=== PATIENT | female | born 1960 | race Two or more races ===

== ENCOUNTER 2019-07-21 22:35 | Emergency (ER) | payer SELFPAY ==
[~2019-07-21] VITALS: Ht 160 cm; Wt 72.6 kg
[2019-07-22 02:00] VITALS: BP 152/91
[2019-07-22] MEDS ORDERED: TETANUS-DIPTH-ACEL PERTUSSIS 0.5ML SYRG IM ONE (03:00)
== END 2019-07-22 03:26 | disposition home or self-care (01) ==
LOC: EDBD 22:35 → ER 22:44
DX: S50.12XA Contusion of left forearm, initial encounter (principal); S16.1XXA Strain of muscle, fascia and tendon at neck level, initial encounter; R51 Headache; R07.89 Other chest pain; Z88.0 Allergy status to penicillin; V43.52XA Car driver injured in collision with other type car in traffic accident, initial encounter; Y93.89 Activity, other specified; Y99.8 Other external cause status; Y92.410 Unspecified street and highway as the place of occurrence of the external cause
CPT/HCPCS: 70450; 71045; 72125; 72131; 73090; 90471

== ENCOUNTER 2021-07-28 19:00 | Inpatient (IN) | payer BC, OTHER ==
[~2021-07-28] VITALS: Ht 162.6 cm; Wt 90.3 kg
[2021-07-28] MEDS ORDERED: methylPREDNISolone SOD SUCC 125 MG/2 ML VL IV ONE (19:15)
[2021-07-28 19:44] LABS: Basophils # (auto) 0 10 ^3/uL (0-0.2); Basophils % (auto) 0.2 % (0.0-2.0); Eosinophils # (auto) 0 10 ^3/uL (0-0.8); Hematocrit 38.5 % (36.0-46.0); Hemoglobin 13.1 g/dL (12.2-16.2); Lymphocytes # (auto) 0.6 10 ^3/uL (0.4-5.4); Mean Corpuscular Hemoglobin 29.9 pg (28.0-32.0); Mean Corpuscular Volume 88.1 fL (80.0-100.0); Monocytes # (auto) 0.3 10 ^3/uL (0-1.3); Monocytes % (auto) 4.2 % (0.0-12.0); Neutrophils # (auto) 5.4 10 ^3/uL (1.6-8.6); Neutrophils % (auto) 85.6 % (37.0-80.0); Red Blood Cells 4.37 10^6/uL (4.0-5.20); Red Cell Distribution Width 12.3 % (11.8-14.3); White Blood Cell 6.4 10^3/uL (4.4-10.8)
[2021-07-28 19:56] LABS: Albumin 2.5 g/dL (3.4-5.0); Anion Gap 11 (5-15); Blood Urea Nitrogen 15 mg/dL (7-18); Calcium 8.3 mg/dL (8.5-10.1); Carbon Dioxide 22 mmol/L (21-32); Chloride 94 mmol/L (98-107); Glucose 113 mg/dL (74-106); Potassium 3.4 mmol/L (3.5-5.1); Sodium 127 mmol/L (136-145)
[2021-07-28 20:08] LABS: Alanine Aminotransferase 138 U/L (13-56); Alkaline Phosphatase 68 U/L (45-117); Aspartate Aminotransferase 182 U/L (15-37); BUN/Creatinine Ratio 12.3; Bilirubin, Total 0.4 mg/dL (0.2-1.0); GFR African American 58 mL/min; GFR Non-African American 48 mL/min; Total Protein 6.9 g/dL (6.4-8.2)
[2021-07-28 20:11] LABS: CRP High Sensitivity > 19.0 mg/dL (< 0.3)
[2021-07-28] MEDS ORDERED: ASCORBIC ACID 500 MG TAB PO ONE (21:15)
[2021-07-28] MEDS ORDERED: AZITHROMYCIN 500MG/ 250ML 250 ML IV ONE (21:15)
[2021-07-28] MEDS ORDERED: ZINC SULFATE 220mg CAP or TAB PO ONE (21:15)
[2021-07-28] MEDS ORDERED: CHOLECALCIFEROL (VITD3) 2,000 UNIT CAP/TAB PO ONE (21:15)
[2021-07-28] MEDS ORDERED: HYDROcodone-ACET 5/325MG TAB PO PRN (23:30)
[2021-07-28] MEDS ORDERED: ACETAMINOPHEN 500 MG TAB PO PRN (23:30)
[2021-07-28] MEDS ORDERED: ONDANSETRON HCL 4 MG/2 ML VIAL IV PRN (23:30)
[2021-07-28] MEDS ORDERED: MORPHINE SULFATE INJECTION 2 MG/ML SYRG IV PRN (23:30)
[2021-07-28] MEDS ORDERED: NITROGLYCERIN 0.4 MG SL TAB SL PRN (23:30)
[2021-07-28] MEDS ORDERED: SODIUM CHLORIDE 0.9% 1,000 ML IV SCH (23:30)
[2021-07-28 23:44] VITALS: BP 107/68
[2021-07-28] MEDS ORDERED: POTASSIUM CHL 20 Meq TABLET PO ONE (23:45)
[2021-07-29] MEDS ORDERED: ALBUMIN 5% 250 ML IV ONE (00:15)
[2021-07-29 00:47] LABS: Urine Bacteria MANY /hpf (None Seen); Urine Blood 1+ /uL (Negative); Urine Hyaline Cast FEW /lpf (0 - 2); Urine Specific Gravity 1.008 (1.001-1.035); Urine WBC 11 /hpf (0 - 5)
[2021-07-29 02:44] VITALS: BP 101/70
[2021-07-29 05:00] VITALS: BP 95/63
[2021-07-29] MEDS ORDERED: HEPARIN SODIUM (PORCINE) 5000 UNITS/ML 1ML VIAL SC SCH (06:00)
[2021-07-29 06:28] LABS: Basophils # (auto) 0 10 ^3/uL (0-0.2); Basophils % (auto) 0.2 % (0.0-2.0); Eosinophils # (auto) 0 10 ^3/uL (0-0.8); Hematocrit 40.3 % (36.0-46.0); Hemoglobin 13.7 g/dL (12.2-16.2); Lymphocytes # (auto) 0.4 10 ^3/uL (0.4-5.4); Mean Corpuscular Hemoglobin 30.1 pg (28.0-32.0); Mean Corpuscular Volume 88.3 fL (80.0-100.0); Monocytes # (auto) 0.1 10 ^3/uL (0-1.3); Monocytes % (auto) 2.1 % (0.0-12.0); Neutrophils # (auto) 4.3 10 ^3/uL (1.6-8.6); Neutrophils % (auto) 88.7 % (37.0-80.0); Nucleated Red Blood Cells % 0.1 %; Red Blood Cells 4.56 10^6/uL (4.0-5.20); Red Cell Distribution Width 12.6 % (11.8-14.3); White Blood Cell 4.9 10^3/uL (4.4-10.8)
[2021-07-29 06:52] LABS: Albumin 2.6 g/dL (3.4-5.0); Calcium 8.4 mg/dL (8.5-10.1); Potassium 3.7 mmol/L (3.5-5.1)
[2021-07-29 06:55] LABS: Bilirubin, Total 0.4 mg/dL (0.2-1.0); Total Protein 7.3 g/dL (6.4-8.2)
[2021-07-29] MEDS: BUDESONIDE (INHALATION) 180 MCG IH IN SCH ×2 (07:05→21:36)
[2021-07-29 09:00] VITALS: BP 109/75
[2021-07-29] MEDS: DexAMETHasone SOD PHOS 10MG/1ML VIAL INJ IV SCH (09:55)
[2021-07-29] MEDS: AZITHROMYCIN 500MG/ 250ML 250 ML IV SCH (09:55)
[2021-07-29] MEDS: MULTIPLE VITAMIN TAB PO SCH (09:56)
[2021-07-29] MEDS: ZINC SULFATE 220mg CAP or TAB PO SCH (09:56)
[2021-07-29] MEDS: ASCORBIC ACID 1,000 MG TAB PO SCH (09:56)
[2021-07-29] MEDS: CHOLECALCIFEROL (VITD3) 2,000 UNIT CAP/TAB PO SCH (09:56)
[2021-07-29 13:00] VITALS: BP 97/68
[2021-07-29] MEDS ORDERED: REMDESIVIR PER PHARMACY 0 ML IV SCH (13:00)
[2021-07-29] MEDS ORDERED: REMDESIVIR 200 MG in NS 210ml LOADING DOSE ADULT IV ONE (15:00)
[2021-07-29] MEDS ORDERED: IOHEXOL 350 MG/ML 100ML IJ ONE (16:32)
[2021-07-29 17:00] VITALS: BP 118/66
[2021-07-29] MEDS: SODIUM CHLORIDE 0.9% 1,000 ML IV SCH ×2 (17:30→23:26)
[2021-07-29] MEDS: ENOXAPARIN SOD 40 MG/0.4 ML SYRINGE SC SCH (21:41)
[2021-07-29 22:00] VITALS: BP 100/61
[2021-07-29] MEDS: ALBUTEROL SULF HFA 90MCG INH 200DOSE IN PRN (23:08)
[2021-07-30 05:00] VITALS: BP 114/74
[2021-07-30] MEDS: ALBUTEROL SULF HFA 90MCG INH 200DOSE IN PRN (06:53)
[2021-07-30] MEDS: BUDESONIDE (INHALATION) 180 MCG IH IN SCH ×2 (06:53→20:50)
[2021-07-30 09:00] VITALS: BP 107/64
[2021-07-30] MEDS: DexAMETHasone SOD PHOS 10MG/1ML VIAL INJ IV SCH (09:22)
[2021-07-30] MEDS: AZITHROMYCIN 500MG/ 250ML 250 ML IV SCH (09:22)
[2021-07-30] MEDS: ZINC SULFATE 220mg CAP or TAB PO SCH (09:23)
[2021-07-30] MEDS: ENOXAPARIN SOD 40 MG/0.4 ML SYRINGE SC SCH ×2 (09:24→21:38)
[2021-07-30] MEDS: CHOLECALCIFEROL (VITD3) 2,000 UNIT CAP/TAB PO SCH (09:24)
[2021-07-30] MEDS: ASCORBIC ACID 1,000 MG TAB PO SCH (09:24)
[2021-07-30] MEDS: MULTIPLE VITAMIN TAB PO SCH (09:24)
[2021-07-30 11:23] LABS: Albumin 2.3 g/dL (3.4-5.0)
[2021-07-30 11:29] LABS: Bilirubin, Direct 0.1 mg/dL (0-0.2); Bilirubin, Total 0.3 mg/dL (0.2-1.0); Total Protein 6.7 g/dL (6.4-8.2)
[2021-07-30 13:00] VITALS: BP 125/65
[2021-07-30] MEDS: guaiFENesin-DM 100/10mg/5ml SYR PO PRN ×2 (15:10→21:45)
[2021-07-30] MEDS: REMDESIVIR 100mg 100 MG in SODIUM CHL 0.9% 230 ML IV SCH (15:10)
[2021-07-30 17:00] VITALS: BP 124/73
[2021-07-30 21:51] VITALS: BP 130/71
[2021-07-30] MEDS ORDERED: VANCOMYCIN PER PHARMACY 0 MG IV SCH (23:00)
[2021-07-30] MEDS ORDERED: VANCOMYCIN 1GM/250ML 250 ML IV ONE (23:15)
[2021-07-31 04:37] VITALS: BP 133/76
[2021-07-31] MEDS: BUDESONIDE (INHALATION) 180 MCG IH IN SCH ×2 (06:47→19:47)
[2021-07-31] MEDS: ALBUTEROL SULF HFA 90MCG INH 200DOSE IN PRN (06:47)
[2021-07-31 06:59] LABS: Potassium 3.4 mmol/L (3.5-5.1)
[2021-07-31 07:12] LABS: Albumin 2.4 g/dL (3.4-5.0); BUN/Creatinine Ratio 17.1; Bilirubin, Total 0.5 mg/dL (0.2-1.0); Calcium 8.4 mg/dL (8.5-10.1); Total Protein 6.9 g/dL (6.4-8.2)
[2021-07-31 09:00] VITALS: BP 145/78
[2021-07-31] MEDS: DexAMETHasone SOD PHOS 10MG/1ML VIAL INJ IV SCH (10:10)
[2021-07-31] MEDS: ZINC SULFATE 220mg CAP or TAB PO SCH (10:11)
[2021-07-31] MEDS: AZITHROMYCIN 500MG/ 250ML 250 ML IV SCH (10:11)
[2021-07-31] MEDS: MULTIPLE VITAMIN TAB PO SCH (10:12)
[2021-07-31] MEDS: ASCORBIC ACID 1,000 MG TAB PO SCH (10:12)
[2021-07-31] MEDS: CHOLECALCIFEROL (VITD3) 2,000 UNIT CAP/TAB PO SCH (10:13)
[2021-07-31] MEDS: ENOXAPARIN SOD 40 MG/0.4 ML SYRINGE SC SCH ×2 (10:14→22:15)
[2021-07-31] MEDS ORDERED: POTASSIUM CHL 20 Meq TABLET PO ONE (12:00)
[2021-07-31] MEDS ORDERED: VANCOMYCIN PER PHARMACY 0 MG IV SCH (12:45)
[2021-07-31 13:00] VITALS: BP 124/73
[2021-07-31] MEDS ORDERED: VANCOMYCIN 1GM/250ML 250 ML IV SCH (14:30)
[2021-07-31] MEDS: REMDESIVIR 100mg 100 MG in SODIUM CHL 0.9% 230 ML IV SCH (16:23)
[2021-07-31 17:00] VITALS: BP 115/66
[2021-07-31 19:34] VITALS: BP 115/66
[2021-07-31 22:00] VITALS: BP 126/76
[2021-07-31] MEDS: LINEZOLID 600MG/300ML 300 ML IV SCH (22:15)
[2021-08-01 05:00] VITALS: BP 130/77
[2021-08-01 06:10] LABS: Basophils # (auto) 0 10 ^3/uL (0-0.2); Basophils % (auto) 0.2 % (0.0-2.0); Eosinophils # (auto) 0 10 ^3/uL (0-0.8); Hematocrit 37.8 % (36.0-46.0); Hemoglobin 12.8 g/dL (12.2-16.2); Lymphocytes # (auto) 0.8 10 ^3/uL (0.4-5.4); Lymphocytes % (auto) 5.9 % (10.0-50.0); Mean Corpuscular Hgb Conc. 33.8 g/dL (32.0-36.0); Mean Corpuscular Volume 88.8 fL (80.0-100.0); Monocytes # (auto) 0.2 10 ^3/uL (0-1.3); Monocytes % (auto) 1.7 % (0.0-12.0); Neutrophils # (auto) 12.1 10 ^3/uL (1.6-8.6); Neutrophils % (auto) 92.2 % (37.0-80.0); Red Blood Cells 4.25 10^6/uL (4.0-5.20); Red Cell Distribution Width 12.9 % (11.8-14.3); White Blood Cell 13.2 10^3/uL (4.4-10.8)
[2021-08-01 06:30] LABS: Potassium 3.7 mmol/L (3.5-5.1)
[2021-08-01 06:41] LABS: BUN/Creatinine Ratio 18.5; Bilirubin, Total 0.7 mg/dL (0.2-1.0); CRP High Sensitivity 12.6 mg/dL (< 0.3); Calcium 8.3 mg/dL (8.5-10.1)
[2021-08-01] MEDS: BUDESONIDE (INHALATION) 180 MCG IH IN SCH (07:48)
[2021-08-01 09:00] VITALS: BP 118/74
[2021-08-01] MEDS: DexAMETHasone SOD PHOS 10MG/1ML VIAL INJ IV SCH (10:12)
[2021-08-01] MEDS: ASCORBIC ACID 1,000 MG TAB PO SCH (10:13)
[2021-08-01] MEDS: ENOXAPARIN SOD 40 MG/0.4 ML SYRINGE SC SCH ×2 (10:13→21:05)
[2021-08-01] MEDS: MULTIPLE VITAMIN TAB PO SCH (10:13)
[2021-08-01] MEDS: levoFLOXacin 500MG 100 ML IV SCH (10:13)
[2021-08-01] MEDS: CHOLECALCIFEROL (VITD3) 2,000 UNIT CAP/TAB PO SCH (10:13)
[2021-08-01] MEDS: ZINC SULFATE 220mg CAP or TAB PO SCH (10:13)
[2021-08-01] MEDS: LINEZOLID 600MG/300ML 300 ML IV SCH ×2 (12:07→21:05)
[2021-08-01 13:21] VITALS: BP 138/82
[2021-08-01] MEDS: REMDESIVIR 100mg 100 MG in SODIUM CHL 0.9% 230 ML IV SCH (15:56)
[2021-08-01 17:02] VITALS: BP 121/75
[2021-08-01 22:01] VITALS: BP 121/75
[2021-08-01] MEDS: guaiFENesin-DM 100/10mg/5ml SYR PO PRN (23:37)
[2021-08-02 05:05] VITALS: BP 137/82
[2021-08-02 06:59] LABS: Calcium 8.3 mg/dL (8.5-10.1); Potassium 4.1 mmol/L (3.5-5.1)
[2021-08-02 07:05] LABS: Albumin 1.8 g/dL (3.4-5.0); BUN/Creatinine Ratio 18.1; Bilirubin, Total 0.5 mg/dL (0.2-1.0)
[2021-08-02 09:00] VITALS: BP 111/59
[2021-08-02] MEDS: ENOXAPARIN SOD 40 MG/0.4 ML SYRINGE SC SCH ×2 (09:23→21:14)
[2021-08-02] MEDS: MULTIPLE VITAMIN TAB PO SCH (09:23)
[2021-08-02] MEDS: DexAMETHasone SOD PHOS 10MG/1ML VIAL INJ IV SCH (09:23)
[2021-08-02] MEDS: CHOLECALCIFEROL (VITD3) 2,000 UNIT CAP/TAB PO SCH (09:24)
[2021-08-02] MEDS: ZINC SULFATE 220mg CAP or TAB PO SCH (09:24)
[2021-08-02] MEDS: ASCORBIC ACID 1,000 MG TAB PO SCH (09:24)
[2021-08-02] MEDS: levoFLOXacin 500MG 100 ML IV SCH (09:30)
[2021-08-02] MEDS: LINEZOLID 600MG/300ML 300 ML IV SCH ×2 (11:03→21:14)
[2021-08-02 13:00] VITALS: BP 107/77
[2021-08-02] MEDS: REMDESIVIR 100mg 100 MG in SODIUM CHL 0.9% 230 ML IV SCH (15:58)
[2021-08-02 17:00] VITALS: BP 124/73
[2021-08-02 22:00] VITALS: BP 117/74
[2021-08-03 05:00] VITALS: BP 125/77
[2021-08-03 08:21] LABS: Calcium 8.3 mg/dL (8.5-10.1); Potassium 4.1 mmol/L (3.5-5.1)
[2021-08-03 08:23] LABS: BUN/Creatinine Ratio 22.1
[2021-08-03 08:46] VITALS: BP 125/69
[2021-08-03] MEDS: DexAMETHasone SOD PHOS 10MG/1ML VIAL INJ IV SCH (09:31)
[2021-08-03] MEDS: levoFLOXacin 500MG 100 ML IV SCH (09:31)
[2021-08-03] MEDS: ENOXAPARIN SOD 40 MG/0.4 ML SYRINGE SC SCH ×2 (09:31→21:19)
[2021-08-03] MEDS: ASCORBIC ACID 1,000 MG TAB PO SCH (09:31)
[2021-08-03] MEDS: ZINC SULFATE 220mg CAP or TAB PO SCH (09:33)
[2021-08-03] MEDS: CHOLECALCIFEROL (VITD3) 2,000 UNIT CAP/TAB PO SCH (09:33)
[2021-08-03] MEDS: MULTIPLE VITAMIN TAB PO SCH (09:33)
[2021-08-03] MEDS: LINEZOLID 600MG/300ML 300 ML IV SCH ×2 (10:34→21:18)
[2021-08-03 12:53] VITALS: BP 102/71
[2021-08-03 17:00] VITALS: BP 105/74
[2021-08-03] MEDS: guaiFENesin-DM 100/10mg/5ml SYR PO PRN (21:19)
[2021-08-03 22:00] VITALS: BP 113/77
[2021-08-04 05:00] VITALS: BP 99/56
[2021-08-04 09:00] VITALS: BP 99/7
[2021-08-04] MEDS: levoFLOXacin 500MG 100 ML IV SCH (09:29)
[2021-08-04] MEDS: ENOXAPARIN SOD 40 MG/0.4 ML SYRINGE SC SCH ×2 (09:30→21:11)
[2021-08-04] MEDS: ZINC SULFATE 220mg CAP or TAB PO SCH (09:30)
[2021-08-04] MEDS: DexAMETHasone SOD PHOS 10MG/1ML VIAL INJ IV SCH (09:31)
[2021-08-04] MEDS: MULTIPLE VITAMIN TAB PO SCH (09:31)
[2021-08-04] MEDS: CHOLECALCIFEROL (VITD3) 2,000 UNIT CAP/TAB PO SCH (09:31)
[2021-08-04] MEDS: ASCORBIC ACID 1,000 MG TAB PO SCH (09:31)
[2021-08-04] MEDS: LINEZOLID 600MG/300ML 300 ML IV SCH ×2 (11:02→21:09)
[2021-08-04 12:00] VITALS: BP 131/71
[2021-08-04 17:00] VITALS: BP 120/77
[2021-08-04] MEDS: guaiFENesin-DM 100/10mg/5ml SYR PO PRN (21:12)
[2021-08-04 22:00] VITALS: BP 119/80
[2021-08-05 05:00] VITALS: BP 121/82
[2021-08-05 09:00] VITALS: BP 106/72
[2021-08-05] MEDS: ASCORBIC ACID 1,000 MG TAB PO SCH (09:23)
[2021-08-05] MEDS: DexAMETHasone SOD PHOS 10MG/1ML VIAL INJ IV SCH (09:23)
[2021-08-05] MEDS: ENOXAPARIN SOD 40 MG/0.4 ML SYRINGE SC SCH ×2 (09:23→21:46)
[2021-08-05] MEDS: levoFLOXacin 500MG 100 ML IV SCH (09:23)
[2021-08-05] MEDS: CHOLECALCIFEROL (VITD3) 2,000 UNIT CAP/TAB PO SCH (09:23)
[2021-08-05] MEDS: ZINC SULFATE 220mg CAP or TAB PO SCH (09:23)
[2021-08-05] MEDS: MULTIPLE VITAMIN TAB PO SCH (09:24)
[2021-08-05] MEDS: LINEZOLID 600MG/300ML 300 ML IV SCH ×2 (10:34→21:46)
[2021-08-05 13:00] VITALS: BP 111/74
[2021-08-05 17:00] VITALS: BP 109/70
[2021-08-05] MEDS ORDERED: FUROSEMIDE 40 MG/4 ML VIAL IV ONE (17:30)
[2021-08-05] MEDS: guaiFENesin-DM 100/10mg/5ml SYR PO PRN (21:46)
[2021-08-05 22:00] VITALS: BP 98/63
[2021-08-06 05:57] LABS: Basophils # (auto) 0 10 ^3/uL (0-0.2); Eosinophils # (auto) 0 10 ^3/uL (0-0.8); Monocytes # (auto) 0.6 10 ^3/uL (0-1.3); Neutrophils # (auto) 5.7 10 ^3/uL (1.6-8.6); Nucleated Red Blood Cells % 0.1 %; White Blood Cell 7.9 10^3/uL (4.4-10.8)
[2021-08-06 06:00] LABS: Basophils % (auto) 0.2 % (0.0-2.0); Eosinophils % (auto) 0.4 % (0.0-7.0); Hemoglobin 12.7 g/dL (12.2-16.2); Lymphocytes # (auto) 1.5 10 ^3/uL (0.4-5.4); Lymphocytes % (auto) 19.5 % (10.0-50.0); Monocytes % (auto) 7.3 % (0.0-12.0); Neutrophils % (auto) 72.6 % (37.0-80.0); Red Blood Cells 4.12 10^6/uL (4.0-5.20)
[2021-08-06 06:01] LABS: Hematocrit 36.8 % (36.0-46.0); Mean Corpuscular Hemoglobin 30.9 pg (28.0-32.0); Mean Corpuscular Hgb Conc. 34.6 g/dL (32.0-36.0); Mean Corpuscular Volume 89.3 fL (80.0-100.0); Red Cell Distribution Width 12.8 % (11.8-14.3)
[2021-08-06 06:15] LABS: Calcium 8.4 mg/dL (8.5-10.1); Potassium 4.3 mmol/L (3.5-5.1)
[2021-08-06 06:18] LABS: BUN/Creatinine Ratio 23.9
[2021-08-06 06:20] LABS: Bilirubin, Total 0.5 mg/dL (0.2-1.0); Total Protein 6.1 g/dL (6.4-8.2)
[2021-08-06 09:00] VITALS: BP 101/64
[2021-08-06] MEDS: MULTIPLE VITAMIN TAB PO SCH (10:09)
[2021-08-06] MEDS: ZINC SULFATE 220mg CAP or TAB PO SCH (10:09)
[2021-08-06] MEDS: ASCORBIC ACID 1,000 MG TAB PO SCH (10:09)
[2021-08-06] MEDS: DexAMETHasone SOD PHOS 10MG/1ML VIAL INJ IV SCH (10:09)
[2021-08-06] MEDS: LINEZOLID 600MG/300ML 300 ML IV SCH ×2 (10:09→21:35)
[2021-08-06] MEDS: CHOLECALCIFEROL (VITD3) 2,000 UNIT CAP/TAB PO SCH (10:09)
[2021-08-06] MEDS: levoFLOXacin 500MG 100 ML IV SCH (10:09)
[2021-08-06] MEDS: ENOXAPARIN SOD 40 MG/0.4 ML SYRINGE SC SCH ×2 (10:10→21:35)
[2021-08-06 13:00] VITALS: BP 103/62
[2021-08-06 16:54] VITALS: BP 96/60
[2021-08-06 21:50] VITALS: BP 113/68
[2021-08-07 05:17] VITALS: BP 120/77
[2021-08-07 06:57] LABS: Basophils # (auto) 0 10 ^3/uL (0-0.2); Basophils % (auto) 0.2 % (0.0-2.0); Eosinophils # (auto) 0 10 ^3/uL (0-0.8); Hemoglobin 12.3 g/dL (12.2-16.2); Monocytes # (auto) 0.8 10 ^3/uL (0-1.3); Nucleated Red Blood Cells % 0.1 %
[2021-08-07 07:01] LABS: Eosinophils % (auto) 0.1 % (0.0-7.0); Hematocrit 35.7 % (36.0-46.0); Lymphocytes # (auto) 2.2 10 ^3/uL (0.4-5.4); Lymphocytes % (auto) 24.4 % (10.0-50.0); Mean Corpuscular Hemoglobin 31.4 pg (28.0-32.0); Mean Corpuscular Hgb Conc. 34.4 g/dL (32.0-36.0); Mean Corpuscular Volume 91.2 fL (80.0-100.0); Monocytes % (auto) 8.5 % (0.0-12.0); Neutrophils # (auto) 6.1 10 ^3/uL (1.6-8.6); Neutrophils % (auto) 66.8 % (37.0-80.0); Red Blood Cells 3.91 10^6/uL (4.0-5.20); Red Cell Distribution Width 12.8 % (11.8-14.3); White Blood Cell 9.1 10^3/uL (4.4-10.8)
[2021-08-07 07:05] LABS: Potassium 4.1 mmol/L (3.5-5.1)
[2021-08-07 07:11] LABS: BUN/Creatinine Ratio 21.1; Calcium 8.7 mg/dL (8.5-10.1); Magnesium 2.3 mg/dL (1.6-2.6)
[2021-08-07 07:19] LABS: Bilirubin, Total 0.5 mg/dL (0.2-1.0); Total Protein 5.8 g/dL (6.4-8.2)
[2021-08-07] MEDS: DexAMETHasone SOD PHOS 10MG/1ML VIAL INJ IV SCH (08:08)
[2021-08-07] MEDS: levoFLOXacin 500MG 100 ML IV SCH (08:08)
[2021-08-07] MEDS: MULTIPLE VITAMIN TAB PO SCH (08:09)
[2021-08-07] MEDS: LINEZOLID 600MG/300ML 300 ML IV SCH (08:09)
[2021-08-07] MEDS: ZINC SULFATE 220mg CAP or TAB PO SCH (08:09)
[2021-08-07] MEDS: ASCORBIC ACID 1,000 MG TAB PO SCH (08:09)
[2021-08-07] MEDS: ENOXAPARIN SOD 40 MG/0.4 ML SYRINGE SC SCH (08:10)
[2021-08-07] MEDS: CHOLECALCIFEROL (VITD3) 2,000 UNIT CAP/TAB PO SCH (08:10)
[2021-08-07 10:01] VITALS: BP 117/72
[2021-08-07 13:25] VITALS: BP 113/77
[2021-08-07 13:26] VITALS: BP 113/77
[2021-08-07 17:00] VITALS: BP 104/65
[2021-08-07 18:08] VITALS: BP 105/65
== END 2021-08-07 20:56 | disposition home or self-care (01) | DRG 177 ==
LOC: ER 19:00 → EDBD 19:00 → TELE 23:19 → TELE-EAST 23:47
PROVIDERS: ADMIT Nurse Practitioner Family; ATTEND Internal Medicine
PROC: XW033E5 Introduction of Remdesivir Anti-infective into Peripheral Vein, Percutaneous Approach, New Technology Group 5 (ICD-10-PCS; principal; 2021-07-29)
DX: U07.1 COVID-19 (principal); J96.01 Acute respiratory failure with hypoxia; J12.82 Pneumonia due to coronavirus disease 2019; N17.0 Acute kidney failure with tubular necrosis; E87.1 Hypo-osmolality and hyponatremia; R78.81 Bacteremia; E87.6 Hypokalemia; E66.9 Obesity, unspecified; Z68.32 Body mass index [BMI] 32.0-32.9, adult; B96.89 Other specified bacterial agents as the cause of diseases classified elsewhere; D89.839 Cytokine release syndrome, grade unspecified; R79.89 Other specified abnormal findings of blood chemistry; R60.0 Localized edema; E88.09 Other disorders of plasma-protein metabolism, not elsewhere classified; K76.0 Fatty (change of) liver, not elsewhere classified; Z88.0 Allergy status to penicillin
CPT/HCPCS: 36415; 36600; 71045; 71275; 76705; 80048; 80053; 80076; 80202; 81001; 82728; 82805; 83036; 83605; 83615; 83735; 85025; 85379; 86141; 87040; 87077; 87186; 87426; 93005; 93970; 94640; 96361; 96365; 96366; 96375; G0378; J1100; J1956